=== PATIENT | female | born 1950 | race Asian ===

== ENCOUNTER → 2017-07-14 16:48 | Outpatient (CLI) | payer MEDICARE, BC ==
[2011-12-11 13:40] VITALS: BMI 22.1
== END | disposition home or self-care (01) ==
LOC: D.MAMMO 10:30
DX: Z12.31 Encounter for screening mammogram for malignant neoplasm of breast (principal)

== ENCOUNTER → 2018-09-11 20:14 | Outpatient (CLI) | payer MEDICARE, BC ==
[2011-12-11 13:40] VITALS: BMI 22.1
== END | disposition home or self-care (01) ==
LOC: D.MAMMO 10:15
DX: Z12.31 Encounter for screening mammogram for malignant neoplasm of breast (principal)

== ENCOUNTER → 2019-11-27 20:00 | Outpatient (CLI) | payer MEDICARE, BC ==
[2011-12-11 13:40] VITALS: BMI 22.1
== END | disposition home or self-care (01) ==
LOC: D.MAMMO 10:30
PROVIDERS: ATTEND Family Medicine
DX: Z12.31 Encounter for screening mammogram for malignant neoplasm of breast (principal)